=== PATIENT | male | born 1985 | race Caucasian/White ===

== ENCOUNTER 2019-06-21 06:57 | Emergency (ER) | payer MEDICARE, MEDICAID ==
[~2019-06-21] VITALS: Ht 180.3 cm; Wt 100.0 kg
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
--- NOTE | 2019-06-21 07:30 | NUR ---
URINE COLLECTED AND SENT TO LAB.
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
--- NOTE | 2019-06-21 07:40 | NUR ---
PT INSTRUCTED TO WRITE DOWN HIS MED LIST. PT IS COOPERATIVE. WILL CHECK BACK AND INPUT LIST.
[2019-06-21] MEDS ORDERED: DIPH,PERTUSS(ACELL),TET VAC/PF 0.5 ML IM-VACC ONE ×2 (07:55→08:00)
[2019-06-21] MEDS ORDERED: NEOSPORIN OINT. PKT 1 PACKET ONE (07:58)
--- NOTE | 2019-06-21 08:47 | NUR ---
I ENTER THE ROOM, PT IS HAVING A CONVERSATION BUT NO ONE IS IN THE ROOM. PT DENIES CURRENT THOUGHTS OF SUICIDE OR SELF-HARM. PT STATES "I ACTUALLY FEEL GREAT". PT IS SPEAKING RAPIDLY AND IS RUNNING HIS WORDS TOGETHER. PT ADMITS TO INJECTING DMT ON A REGULAR BASIS.
[2019-06-21 09:01] VITALS: BP 132/74
--- NOTE | 2019-06-21 09:26 | NUR ---
TASK RN, ASSISTING PRIMARY. PT OUT IN HALLWAY ASKING FOR DISCHARGE INSTRUCTIONS. DISCHARGE INSTRUCTIONS PROVIDED, PT AMBULATORY TO DISCHARGE DESK.
[2019-06-23] MEDS ORDERED: CEFD300C37 PO (18:42)
== END 2019-06-21 09:29 | disposition home or self-care (01) ==
LOC: ED 09:00
DX: S06.0X1A Concussion with loss of consciousness of 30 minutes or less, initial encounter (principal); S16.1XXA Strain of muscle, fascia and tendon at neck level, initial encounter; S00.12XA Contusion of left eyelid and periocular area, initial encounter; Y08.89XA Assault by other specified means, initial encounter; Y93.89 Activity, other specified; Y92.410 Unspecified street and highway as the place of occurrence of the external cause; Y99.8 Other external cause status
CPT/HCPCS: 70450; 70486; 72110; 72125; 90471; 90715

== ENCOUNTER 2019-06-22 13:44 | Inpatient (IN) | payer MEDICARE, MEDICAID ==
[~2019-06-22] VITALS: Ht 182.9 cm; Wt 107.0 kg
[2019-06-23 08:00] VITALS: BP 119/75
== END 2019-06-23 19:15 | disposition home or self-care (01) | DRG 690 ==
LOC: ED 15:52 → EDIP 19:36 → 2N 21:54
PROVIDERS: ADMIT Internal Medicine; ATTEND Internal Medicine
DX: A54.01 Gonococcal cystitis and urethritis, unspecified (principal); R45.851 Suicidal ideations; F33.9 Major depressive disorder, recurrent, unspecified; F15.20 Other stimulant dependence, uncomplicated; B19.20 Unspecified viral hepatitis C without hepatic coma; F17.210 Nicotine dependence, cigarettes, uncomplicated; F25.0 Schizoaffective disorder, bipolar type; Z82.3 Family history of stroke
CPT/HCPCS: 36415; 80053; 80307; 81001; 85025; 87077; 87086; 87491; 87591; G0378; J0696

== ENCOUNTER 2021-07-17 16:50 | Emergency (ER) | payer MEDICAID, MEDICARE, OTHER ==
[~2021-07-17] VITALS: Ht 185.4 cm; Wt 102.9 kg
[~2021-07-17 16:50] MED LIST: CEFD300C37 PO
[2021-07-17 16:56] VITALS: BP 124/84
[2021-07-17] MEDS ORDERED: ZIPRASIDONE 20 MG INJ IM ONE (19:00)
[2021-07-17 19:59] LABS: BASOPHILS % (AUTO) 1 % (0-1); EOSINOPHILS % (AUTO) 1 % (1-7); LYMPHOCYTES % (AUTO) 52 % (22-44); MEAN CORPUSCULAR HEMOGLOBIN 29.8 pg (27.5-34.5); MEAN CORPUSCULAR HGB CONC 33.3 g/dL (33.2-36.2); MEAN PLATELET VOLUME 8.1 fL (7.4-10.4); MONOCYTES % (AUTO) 9 % (2-9); NEUTROPHILS % (AUTO) 37 % (42-75); PLATELET COUNT 253 x10^3/uL (130-400); RED CELL DISTRIBUTION WIDTH 13.6 % (9.4-14.8)
[2021-07-17 20:08] LABS: ALANINE AMINOTRANSFERASE 117 U/L (12-78); ALBUMIN 3.7 g/dL (3.4-5.0); ANION GAP 3 mmol/L (5-15); CALCIUM 8.9 mg/dL (8.5-10.1); CHLORIDE 108 mmol/L (98-107)
[2021-07-17 20:11] LABS: ALKALINE PHOSPHATASE 100 U/L (45-117); BILIRUBIN,TOTAL 0.4 mg/dL (0.2-1.0)
--- NOTE | 2021-07-17 20:35 | NUR ---
PT TAKEN TO ROOM. PT NEEDS TO LEAVE AND WILL COME BACK AT A LATER TIME. PT ENCOURAGED TO SEE MD. PT REFUSED AND WONT SIGN AMA PAPER
== END 2021-07-17 20:38 | disposition left against medical advice (07) ==
LOC: ED 17:00
DX: F29 Unspecified psychosis not due to a substance or known physiological condition (principal)
CPT/HCPCS: 36415; 80053; 80164; 85025; 99283

== ENCOUNTER 2021-08-03 11:20 | Emergency (ER) | payer SELFPAY ==
[~2021-08-03] VITALS: Ht 185.4 cm; Wt 107.0 kg
--- NOTE | 2021-08-03 11:29 | NUR ---
CALLED FOR TRIAGE, NO ANSWER
[2021-08-03] MEDS ORDERED: LIDOCAINE-MPF 1%, 5ML INFIL ONE (12:00)
[2021-08-03 15:08] VITALS: BP 108/74
--- NOTE | 2021-08-03 15:10 | NUR ---
recheck vs at 1510
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
--- NOTE | 2021-08-03 15:48 | NUR ---
Patient given discharge instructions and they have confirmed that they understand the instructions. Patient ambulatory with steady gait. NAD, all questions answered appropriately, denies additional needs at this time. No personal belongings left in room after discharge.
== END 2021-08-03 15:48 | disposition home or self-care (01) ==
LOC: ED 15:42
DX: L02.31 Cutaneous abscess of buttock (principal)
CPT/HCPCS: 99283